=== PATIENT | female | born 1990 | race Caucasian/White ===

== ENCOUNTER 2017-02-07 07:20 | Emergency (ER) | payer OTHER ==
[~2017-02-07] VITALS: Ht 167.6 cm; Wt 86.4 kg
[~2017-02-07 07:20] MED LIST: ALEVE220 M1 PO; AMOXICILLIN/CL875 MG PO; AMOXICILLIN500 MG PO; AMOXICILLIN875 MG OR; AMOXICILLIN875 MG PO; AUGMENTIN875 MG PO; BACTRIM DS1 TAB PO; BENTYL10 MG PO; CHLORHEXADINE0.12 % PO; CIPRO HC AS; CIPRO500 MG OR; CIPROFLOXACN500 MG PO; CLINDAMYCIN150 MG PO; CORTISPORIN OTI10 M1 AS; CORTISPORIN OTI10 M2 AD; CORTISPORIN OTI10 ML AS; DEPO-PROVER150 MG/ML IM; DIFLUCAN150 MG OR; DIFLUCAN150 MG PO; FIORICE1 PO; FIORICET OR; FIORICET PO; FLINTSTONES OR; FLONASE NASAL50 MCG; FLONASE SPRAY50 MC1; FLORASTOR250 M1 PO; GENTAK0.32 OU; GLYBURIDE1.25 MG PO; GLYBURIDE2.5 MG OR; GLYBURIDE2.5 MG PO; IMITREX25 MG PO; LEVOTHYROXIN25 MC1 PO; LEVOTHYROXIN50 MCG PO; LORTAB 1010 MG PO; LORTAB 5 OR; LORTAB 7.57.5 MG PO; LORTAB5 PO; NAPROSYN500 MG OR; NAPROSYN500 MG PO; NO HOME MEDS; OBTREX DHA PO; ONDANSETRON ODT8 MG PO; ONDANSETRON4 MG PO; PERCOCET 10/31 COMBO PO; PERCOCET 5/325M1 TAB OR; PERCOCET1 TA2 PO; PHENERGAN25 MG/TAB PO; POTASSIMIN75 MG PO; PRENATA2 OR; PRENATABS OR; PROMETHAZINE25 MG OR; PYRIDIUM200 MG PO; ROCEPHIN 2250 MG/VIA IM; SAM E PO; SANTYL250 MG/GM EX; SEPTRA4001; TAM75CAP OR; TORADOL OR; TUMS500 MG PO; ULTRAM50 M1 OR; ULTRAM50 M1 PO; ULTRAM50 MG OR; ULTRAM50 MG PO; VISTARIL50 MG PO; XANAX0.25 MG PO; ZITHROMAX250 MG PO; ZOFRAN ODT4 MG OR; ZOFRAN ODT4 MG PO; ZOFRAN ODT8 MG OR; ZOFRAN4 MG OR; ZPAK OR
[2017-02-07 08:08] LABS: HEMATOCRIT 40.2 % (37.0-47.0); HEMOGLOBIN 13.4 g/dl (12.0-16.0); IMMATURE GRANULOCYTES 0.4 % (0.0-1.0); MEAN CELL VOLUME 96.2 fL CALC (80.0-100.0); MEAN CORPUSCULAR HGB 32.1 pG CALC (26.0-32.0); MEAN CORPUSCULAR HGB CONC 33.3 g/L CALC (32.0-36.0); NEUT# 3.74 thou/uL (2.00-7.15); RED BLOOD COUNT 4.18 mill/uL (4.20-5.60); RED CELL DISTRI WIDTH 12.3 % (11.5-15.5)
[2017-02-07 08:45] LABS: ALBUMIN 4.6 g/dL (3.2-5.0); ALKALINE PHOSPHATASE 61 u/l (38-126); AMYLASE 52 u/l (30-110); ANION GAP 15 (6-22 (CALC)); BILIRUBIN, TOTAL 0.5 mg/dL (0.0-1.4); BUN 13 mg/dL (7-17); BUN/CREATININE RATIO 20 (12-20 (CALC)); CALCIUM 9.7 mg/dL (8.4-10.2); CARBON DIOXIDE 25 mmol/l (22-30); CHLORIDE 105 mmol/l (95-108); CREATININE 0.6 mg/dL (0.5-1.0); GFR > 60 ML/MIN (>=60 (CALC)); GFR FOR AFR.AMER. > 60 ML/MIN (>=60 (CALC)); GLUCOSE 79 mg/dL (65-105); LIPASE 30 u/l (23-300); POTASSIUM 4.3 mmol/l (3.5-5.1); SGOT/AST 24 u/l (14-36); SGPT/ALT 34 u/l (9-52); SODIUM 141 mmol/l (137-146); TOTAL PROTEIN 7.9 g/dL (6.3-8.2)
[2017-02-07] MEDS ORDERED: ULTRAM50 M1 PO (09:51)
[2017-02-07] MEDS ORDERED: ZOFRAN ODT4 MG PO (09:51)
[2017-02-07] MEDS ORDERED: BENTYL10 MG PO (09:51)
[2017-02-07 09:53] VITALS: BP 133/87
== END 2017-02-07 09:59 | disposition home or self-care (01) | DRG 392 ==
LOC: ED 07:20
PROVIDERS: Emergency Medicine
DX: R10.32 Left lower quadrant pain (principal); E11.9 Type 2 diabetes mellitus without complications; K58.9 Irritable bowel syndrome, unspecified; N83.201 Unspecified ovarian cyst, right side

== ENCOUNTER 2017-02-18 15:19 | Emergency (ER) | payer OTHER ==
[~2017-02-18] VITALS: Ht 167.6 cm; Wt 68.0 kg
[2017-02-18 16:00] LABS: HEMATOCRIT 41.8 % (37.0-47.0); HEMOGLOBIN 13.6 g/dl (12.0-16.0); IMMATURE GRANULOCYTES 0.2 % (0.0-1.0); MEAN CORPUSCULAR HGB 30.9 pG CALC (26.0-32.0); MEAN CORPUSCULAR HGB CONC 32.5 g/L CALC (32.0-36.0); NEUT# 4.59 thou/uL (2.00-7.15); RED BLOOD COUNT 4.4 mill/uL (4.20-5.60); RED CELL DISTRI WIDTH 11.9 % (11.5-15.5)
[2017-02-18 16:43] LABS: ALBUMIN 4.9 g/dL (3.2-5.0); ALKALINE PHOSPHATASE 70 u/l (38-126); AMYLASE 65 u/l (30-110); ANION GAP 17 (6-22 (CALC)); BILIRUBIN, TOTAL 0.8 mg/dL (0.0-1.4); BUN 10 mg/dL (7-17); BUN/CREATININE RATIO 14 (12-20 (CALC)); CALCIUM 9.6 mg/dL (8.4-10.2); CARBON DIOXIDE 25 mmol/l (22-30); CHLORIDE 103 mmol/l (95-108); CREATININE 0.7 mg/dL (0.5-1.0); GFR > 60 ML/MIN (>=60 (CALC)); GFR FOR AFR.AMER. > 60 ML/MIN (>=60 (CALC)); GLUCOSE 101 mg/dL (65-105); LIPASE 44 u/l (23-300); POTASSIUM 4.7 mmol/l (3.5-5.1); SGOT/AST 79 u/l (14-36); SGPT/ALT 11 u/l (9-52); SODIUM 141 mmol/l (137-146); TOTAL PROTEIN 8.7 g/dL (6.3-8.2)
[2017-02-18] MEDS ORDERED: CIPROFLOXACN500 MG PO (17:42)
[2017-02-18 17:43] VITALS: BP 148/93
== END 2017-02-18 17:50 | disposition home or self-care (01) | DRG 392 ==
LOC: ED 15:19
PROVIDERS: Emergency Medicine
DX: R10.32 Left lower quadrant pain (principal); E11.9 Type 2 diabetes mellitus without complications; K58.9 Irritable bowel syndrome, unspecified; G89.29 Other chronic pain

== ENCOUNTER 2017-06-10 11:40 | Emergency (ER) | payer OTHER ==
[~2017-06-10] VITALS: Ht 167.6 cm; Wt 74.0 kg
[2017-06-10] MEDS ORDERED: AUGMENTIN875TAB PO (12:32)
[2017-06-10 13:24] LABS: INFLUENZA A NONE DETECTED (NONE DETECT); INFLUENZA B NONE DETECTED (NONE DETECT)
[2017-06-10] MEDS ORDERED: ROBITUSSIN AC10 ML PO (13:28)
[2017-06-10] MEDS ORDERED: CEPHALEXIN500 MG PO (13:28)
[2017-06-10] MEDS ORDERED: FLONASE AL50 MCG/ACT (13:28)
[2017-06-10 13:30] VITALS: BP 121/79
== END 2017-06-10 13:30 | disposition home or self-care (01) | DRG 153 ==
LOC: ED 11:40
PROVIDERS: Emergency Medicine
DX: J06.9 Acute upper respiratory infection, unspecified (principal); E11.9 Type 2 diabetes mellitus without complications

== ENCOUNTER 2017-07-03 11:04 | Emergency (ER) | payer OTHER ==
[~2017-07-03] VITALS: Ht 167.6 cm; Wt 75.2 kg
[~2017-07-03 11:04] MED LIST changes: +AUGMENTIN875TAB PO; +CEPHALEXIN500 MG PO; +FLONASE AL50 MCG/ACT; +ROBITUSSIN AC10 ML PO
[2017-07-03] MEDS ORDERED: DICYCLOMINE10 MG PO (11:25)
[2017-07-03 12:32] LABS: HEMATOCRIT 38.3 % (37.0-47.0); HEMOGLOBIN 12.7 g/dl (12.0-16.0); IMMATURE GRANULOCYTES 0.2 % (0.0-1.0); MEAN CELL VOLUME 95.3 fL CALC (80.0-100.0); MEAN CORPUSCULAR HGB 31.6 pG CALC (26.0-32.0); MEAN CORPUSCULAR HGB CONC 33.2 g/L CALC (32.0-36.0); NEUT# 4.22 thou/uL (2.00-7.15); RED BLOOD COUNT 4.02 mill/uL (4.20-5.60); RED CELL DISTRI WIDTH 12.1 % (11.5-15.5)
[2017-07-03 12:44] LABS: ALBUMIN 4.7 g/dL (3.2-5.0); ALKALINE PHOSPHATASE 60 u/l (38-126); ANION GAP 14 (6-22 (CALC)); BILIRUBIN, TOTAL 0.5 mg/dL (0.0-1.4); BUN 11 mg/dL (7-17); BUN/CREATININE RATIO 15 (12-20 (CALC)); CALCIUM 9.8 mg/dL (8.4-10.2); CARBON DIOXIDE 25 mmol/l (22-30); CHLORIDE 105 mmol/l (95-108); CREATININE 0.7 mg/dL (0.5-1.0); GFR > 60 ML/MIN (>=60 (CALC)); GFR FOR AFR.AMER. > 60 ML/MIN (>=60 (CALC)); GLUCOSE 80 mg/dL (65-105); POTASSIUM 4.4 mmol/l (3.5-5.1); SGOT/AST 21 u/l (14-36); SGPT/ALT 35 u/l (9-52); SODIUM 140 mmol/l (137-146); TOTAL PROTEIN 7.7 g/dL (6.3-8.2)
[2017-07-03 13:21] VITALS: BP 120/79
== END 2017-07-03 13:19 | disposition home or self-care (01) | DRG 392 ==
LOC: ED 11:04
PROVIDERS: Emergency Medicine
DX: R10.84 Generalized abdominal pain (principal); K58.9 Irritable bowel syndrome, unspecified

== ENCOUNTER 2017-08-17 09:17 | Emergency (ER) | payer OTHER ==
[~2017-08-17] VITALS: Ht 167.6 cm; Wt 75.0 kg
[~2017-08-17 09:17] MED LIST changes: +DICYCLOMINE10 MG PO
[2017-08-17 10:18] LABS: URINE BILIRUBIN - DIPSTICK NEGATIVE (NEGATIVE); URINE BLOOD DIPSTICK NEGATIVE (NEGATIVE); URINE CLARITY CLEAR; URINE COLOR YELLOW; URINE GLUCOSE - DIPSTICK NEGATIVE (NEGATIVE); URINE KETONE NEGATIVE (NEGATIVE); URINE LEUK ESTERASE NEGATIVE (NEGATIVE); URINE NITRITE - DIPSTICK NEGATIVE (Negative); URINE PROTEIN - DIPSTICK NEGATIVE (NEG-TRACE); URINE UROBILINOGEN - DIPSTICK 0.2 E.U./dL (0.2)
[2017-08-17 10:48] LABS: HEMATOCRIT 40.3 % (37.0-47.0); HEMOGLOBIN 13.4 g/dl (12.0-16.0); IMMATURE GRANULOCYTES 0.3 % (0.0-1.0); MEAN CORPUSCULAR HGB 31.6 pG CALC (26.0-32.0); MEAN CORPUSCULAR HGB CONC 33.3 g/L CALC (32.0-36.0); NEUT# 4.88 thou/uL (2.00-7.15); RED BLOOD COUNT 4.24 mill/uL (4.20-5.60)
[2017-08-17 11:01] LABS: ALBUMIN 4.7 g/dL (3.2-5.0); ALKALINE PHOSPHATASE 55 u/l (38-126); ANION GAP 15 (6-22 (CALC)); BILIRUBIN, TOTAL 0.6 mg/dL (0.0-1.4); BUN 9 mg/dL (7-17); BUN/CREATININE RATIO 13 (12-20 (CALC)); CALCIUM 9.8 mg/dL (8.4-10.2); CARBON DIOXIDE 26 mmol/l (22-30); CHLORIDE 106 mmol/l (95-108); CREATININE 0.7 mg/dL (0.5-1.0); GFR > 60 ML/MIN (>=60 (CALC)); GFR FOR AFR.AMER. > 60 ML/MIN (>=60 (CALC)); GLUCOSE 86 mg/dL (65-105); POTASSIUM 4.2 mmol/l (3.5-5.1); SGOT/AST 16 u/l (14-36); SGPT/ALT 28 u/l (9-52); SODIUM 143 mmol/l (137-146); TOTAL PROTEIN 7.4 g/dL (6.3-8.2)
[2017-08-17] MEDS ORDERED: TORADOL PO (11:17)
[2017-08-17] MEDS ORDERED: FLEXERIL PO (11:17)
[2017-08-17 11:37] VITALS: BP 114/67
== END 2017-08-17 11:44 | disposition home or self-care (01) | DRG 552 ==
LOC: ED 09:17
PROVIDERS: Emergency Medicine
DX: M54.5 Low back pain (principal); R10.11 Right upper quadrant pain

== ENCOUNTER 2017-11-15 15:35 | Emergency (ER) | payer OTHER ==
[~2017-11-15] VITALS: Ht 167.6 cm; Wt 74.0 kg
[~2017-11-15 15:35] MED LIST changes: +FLEXERIL PO; +TORADOL PO
[2017-11-15 17:32] VITALS: BP 134/77
== END 2017-11-15 17:32 | disposition home or self-care (01) | DRG 563 ==
LOC: ED 15:35
DX: S93.491A Sprain of other ligament of right ankle, initial encounter (principal); X50.1XXA Overexertion from prolonged static or awkward postures, initial encounter; Y93.89 Activity, other specified; Y92.009 Unspecified place in unspecified non-institutional (private) residence as the place of occurrence of the external cause

== ENCOUNTER 2018-02-24 07:22 | Emergency (ER) | payer OTHER ==
[~2018-02-24] VITALS: Ht 167.6 cm; Wt 77.3 kg
[2018-02-24 08:07] LABS: HEMOGLOBIN 13.3 g/dl (12.0-16.0); IMMATURE GRANULOCYTES 0.4 % (0.0-1.0); MEAN CELL VOLUME 96.5 fL CALC (80.0-100.0); MEAN CORPUSCULAR HGB 31.3 pG CALC (26.0-32.0); MEAN CORPUSCULAR HGB CONC 32.4 g/L CALC (32.0-36.0); NEUT# 6.42 thou/uL (2.00-7.15); RED BLOOD COUNT 4.25 mill/uL (4.20-5.60); RED CELL DISTRI WIDTH 12.8 % (11.5-15.5)
[2018-02-24 08:18] LABS: ALBUMIN 4.8 g/dL (3.2-5.0); ALKALINE PHOSPHATASE 63 u/l (38-126); ANION GAP 19 (6-22 (CALC)); BILIRUBIN, TOTAL 0.5 mg/dL (0.0-1.4); BUN 9 mg/dL (7-17); BUN/CREATININE RATIO 14 (12-20 (CALC)); CARBON DIOXIDE 25 mmol/l (22-30); CHLORIDE 106 mmol/l (95-108); CREATININE 0.6 mg/dL (0.5-1.0); GFR > 60 ML/MIN (>=60 (CALC)); GFR FOR AFR.AMER. > 60 ML/MIN (>=60 (CALC)); LIPASE 29 u/l (23-300); POTASSIUM 3.6 mmol/l (3.5-5.1); SGOT/AST 25 u/l (14-36); SGPT/ALT 34 u/l (9-52); SODIUM 146 mmol/l (137-146); TOTAL PROTEIN 8.6 g/dL (6.3-8.2)
[2018-02-24] MEDS ORDERED: DICYCLOMINE 10 MG/ML IM (09:03)
[2018-02-24 09:56] LABS: URINE BILIRUBIN - DIPSTICK NEGATIVE (NEGATIVE); URINE BLOOD DIPSTICK NEGATIVE (NEGATIVE); URINE CLARITY CLEAR; URINE COLOR YELLOW; URINE GLUCOSE - DIPSTICK NEGATIVE (NEGATIVE); URINE KETONE NEGATIVE (NEGATIVE); URINE LEUK ESTERASE NEGATIVE (NEGATIVE); URINE NITRITE - DIPSTICK NEGATIVE (Negative); URINE PH 8.5 (4.5-8.0); URINE PROTEIN - DIPSTICK TRACE mg/dL (NEG-TRACE); URINE UROBILINOGEN - DIPSTICK 0.2 E.U./dL (0.2)
[2018-02-24] MEDS ORDERED: ONDANSETRON4 MG PO (10:16)
[2018-02-24 10:48] VITALS: BP 83/46
== END 2018-02-24 10:48 | disposition home or self-care (01) | DRG 392 ==
LOC: ED 07:22
PROVIDERS: Family Medicine
DX: R10.9 Unspecified abdominal pain (principal); R11.2 Nausea with vomiting, unspecified; K58.9 Irritable bowel syndrome, unspecified

== ENCOUNTER 2018-08-25 14:59 | Emergency (ER) | payer OTHER ==
[~2018-08-25] VITALS: Ht 167.6 cm; Wt 72.0 kg
[~2018-08-25 14:59] MED LIST changes: +DICYCLOMINE 10 MG/ML IM
[2018-08-25 17:24] LABS: HEMATOCRIT 41.7 % (37.0-47.0); HEMOGLOBIN 13.8 g/dl (12.0-16.0); IMMATURE GRANULOCYTES 0.3 % (0.0-5.0); MEAN CELL VOLUME 95.6 fL CALC (80.0-100.0); MEAN CORPUSCULAR HGB 31.7 pG CALC (26.0-32.0); MEAN CORPUSCULAR HGB CONC 33.1 g/L CALC (32.0-36.0); NEUT# 5.14 thou/uL (2.00-7.15); RED BLOOD COUNT 4.36 mill/uL (4.20-5.60); RED CELL DISTRI WIDTH 12.2 % (11.5-15.5)
[2018-08-25 18:08] LABS: ALBUMIN 4.1 g/dL (3.2-5.0); ALKALINE PHOSPHATASE 64 u/l (38-126); AMYLASE 43 u/l (30-110); ANION GAP 12 (6-22 (CALC)); BILIRUBIN, TOTAL 0.3 mg/dL (0.0-1.4); BUN 4 mg/dL (7-17); BUN/CREATININE RATIO 8 (12-20 (CALC)); CARBON DIOXIDE 23 mmol/l (22-30); CHLORIDE 111 mmol/l (95-108); CREATININE 0.5 mg/dL (0.5-1.0); GFR > 60 ML/MIN (>=60 (CALC)); GFR FOR AFR.AMER. > 60 ML/MIN (>=60 (CALC)); LIPASE 29 u/l (23-300); POTASSIUM 4.1 mmol/l (3.5-5.1); SGOT/AST 18 u/l (14-36); SODIUM 142 mmol/l (137-146)
[2018-08-25 18:10] LABS: TOTAL PROTEIN 6.8 g/dL (6.3-8.2)
[2018-08-25] MEDS ORDERED: PREVACID30 M3 PO (18:46)
[2018-08-25] MEDS ORDERED: ZOFRAN ODT4 MG PO (18:46)
[2018-08-25] MEDS ORDERED: BENTYL10 MG PO (18:46)
[2018-08-25] MEDS ORDERED: ULTRAM50 M1 PO (18:46)
[2018-08-25 18:49] VITALS: BP 110/64
== END 2018-08-25 19:00 | disposition home or self-care (01) | DRG 392 ==
LOC: ED 14:59
PROVIDERS: Emergency Medicine
DX: K58.0 Irritable bowel syndrome with diarrhea (principal)
CPT/HCPCS: S0164

== ENCOUNTER 2018-09-11 17:00 | Emergency (ER) | payer OTHER ==
[~2018-09-11] VITALS: Ht 167.6 cm; Wt 74.0 kg
[~2018-09-11 17:00] MED LIST changes: +PREVACID30 M3 PO
[2018-09-11] MEDS ORDERED: ZOFRAN4 MG/TAB PO (18:46)
[2018-09-11] MEDS ORDERED: IBUPROFEN600 MG PO (18:46)
[2018-09-11] MEDS ORDERED: AMOXICILLIN875 MG PO (18:46)
[2018-09-11 19:10] VITALS: BP 113/69
== END 2018-09-11 19:10 | disposition home or self-care (01) | DRG 153 ==
LOC: ED 17:00
DX: J02.9 Acute pharyngitis, unspecified (principal); R50.9 Fever, unspecified; R51 Headache; H66.92 Otitis media, unspecified, left ear

== ENCOUNTER 2019-04-14 17:05 | Emergency (ER) | payer OTHER ==
[~2019-04-14] VITALS: Ht 167.6 cm; Wt 72.0 kg
[~2019-04-14 17:05] MED LIST changes: +IBUPROFEN600 MG PO; +ZOFRAN4 MG/TAB PO
[2019-04-14] MEDS ORDERED: FLEXERIL PO (18:18)
[2019-04-14 18:47] VITALS: BP 109/63
== END 2019-04-14 18:51 | disposition home or self-care (01) | DRG 103 ==
LOC: ED 17:05
DX: G43.909 Migraine, unspecified, not intractable, without status migrainosus (principal); S46.911A Strain of unspecified muscle, fascia and tendon at shoulder and upper arm level, right arm, initial encounter; X50.1XXA Overexertion from prolonged static or awkward postures, initial encounter; Y92.810 Car as the place of occurrence of the external cause
CPT/HCPCS: J0131

== ENCOUNTER 2019-09-13 07:25 | Emergency (ER) | payer OTHER ==
[~2019-09-13] VITALS: Ht 167.6 cm; Wt 72.7 kg
[2019-09-13] MEDS ORDERED: TYLENOL # 31 TAB PO (07:56)
[2019-09-13] MEDS ORDERED: TAM75CAP PO (07:56)
[2019-09-13] MEDS ORDERED: CORTISPORIN OTI10 ML AS (07:56)
[2019-09-13 08:15] VITALS: BP 124/81
== END 2019-09-13 08:16 | disposition home or self-care (01) | DRG 153 ==
LOC: ED 07:25
DX: J11.1 Influenza due to unidentified influenza virus with other respiratory manifestations (principal)
CPT/HCPCS: G9019

== ENCOUNTER 2020-01-03 | Emergency (ER) | payer OTHER ==
[~2020-01-03] MED LIST changes: +TAM75CAP PO; +TYLENOL # 31 TAB PO
[2020-01-03 23:18] LABS: URINE BILIRUBIN - DIPSTICK NEGATIVE (NEGATIVE); URINE BLOOD DIPSTICK NEGATIVE (NEGATIVE); URINE COLOR YELLOW; URINE GLUCOSE - DIPSTICK NEGATIVE (NEGATIVE); URINE KETONE NEGATIVE (NEGATIVE); URINE LEUK ESTERASE NEGATIVE (NEGATIVE); URINE NITRITE - DIPSTICK NEGATIVE (Negative); URINE PROTEIN - DIPSTICK NEGATIVE (NEG-TRACE); URINE SPECIFIC GRAVITY 1.015; URINE UROBILINOGEN - DIPSTICK 0.2 E.U./dL (0.2)
[2020-01-03 23:32] LABS: HEMATOCRIT 36.6 % (37.0-47.0); IMMATURE GRANULOCYTES 0.3 % (0.0-5.0); MEAN CELL VOLUME 96.8 fL CALC (80.0-100.0); MEAN CORPUSCULAR HGB 31.7 pG CALC (26.0-32.0); MEAN CORPUSCULAR HGB CONC 32.8 g/dL CAL (32.0-36.0); NEUT# 5.14 thou/uL (2.00-7.15); RED BLOOD COUNT 3.78 mill/uL (4.20-5.60); RED CELL DISTRI WIDTH 12.7 % (11.5-15.5)
[2020-01-04] MEDS ORDERED: TRAMADOL HYDROC50 MG PO (03:40)
== END 2020-01-04 03:56 | disposition home or self-care (01) | DRG 392 ==
DX: R10.2 Pelvic and perineal pain (principal)

== ENCOUNTER 2020-01-08 | Emergency (ER) | payer OTHER ==
[~2020-01-08] MED LIST changes: +TRAMADOL HYDROC50 MG PO
[2020-01-08 06:13] LABS: HEMATOCRIT 39.6 % (37.0-47.0); IMMATURE GRANULOCYTES 0.3 % (0.0-5.0); MEAN CELL VOLUME 96.6 fL CALC (80.0-100.0); MEAN CORPUSCULAR HGB 31.7 pG CALC (26.0-32.0); MEAN CORPUSCULAR HGB CONC 32.8 g/dL CAL (32.0-36.0); NEUT# 8.73 thou/uL (2.00-7.15); RED BLOOD COUNT 4.1 mill/uL (4.20-5.60); RED CELL DISTRI WIDTH 12.5 % (11.5-15.5)
[2020-01-08 06:14] LABS: URINE BILIRUBIN - DIPSTICK NEGATIVE (NEGATIVE); URINE BLOOD DIPSTICK NEGATIVE (NEGATIVE); URINE COLOR YELLOW; URINE GLUCOSE - DIPSTICK NEGATIVE (NEGATIVE); URINE KETONE NEGATIVE (NEGATIVE); URINE LEUK ESTERASE NEGATIVE (NEGATIVE); URINE NITRITE - DIPSTICK NEGATIVE (Negative); URINE PROTEIN - DIPSTICK NEGATIVE (NEG-TRACE); URINE UROBILINOGEN - DIPSTICK 0.2 E.U./dL (0.2)
[2020-01-08 06:29] LABS: BARBITURATES NEGATIVE (NEGATIVE); COCAINE NEGATIVE (NEGATIVE); METHADONE NEGATIVE (NEGATIVE); OXCYCODONE NEGATIVE (NEGATIVE); TETRAHYDROCANNABIONOL POSITIVE (NEGATIVE); TRICYLIC ANTIDEPRESSANTS NEGATIVE (NEGATIVE)
[2020-01-08 06:37] LABS: ALBUMIN 4.7 g/dL (3.2-5.0); ALKALINE PHOSPHATASE 62 u/l (38-126); AMYLASE 101 u/l (30-110); ANION GAP 11 (6-22 (CALC)); BILIRUBIN, TOTAL 0.4 mg/dL (0.0-1.4); BUN 12 mg/dL (7-17); BUN/CREATININE RATIO 20 (12-20 (CALC)); CARBON DIOXIDE 25 mmol/l (22-30); CHLORIDE 105 mmol/l (95-108); CREATININE 0.6 mg/dL (0.5-1.0); GFR > 60 ML/MIN (>=60 (CALC)); GFR FOR AFR.AMER. > 60 ML/MIN (>=60 (CALC)); LIPASE 39 u/l (23-300); POTASSIUM 4.1 mmol/l (3.5-5.1); SGOT/AST 30 u/l (14-36); SODIUM 137 mmol/l (137-146); TOTAL PROTEIN 7.9 g/dL (6.3-8.2)
[2020-01-08] MEDS ORDERED: PHENERGAN25 MG/TAB PO (08:49)
[2020-01-08] MEDS ORDERED: PROTONIX40 M2 PO (08:49)
== END 2020-01-08 08:57 | disposition home or self-care (01) | DRG 392 ==
DX: R10.13 Epigastric pain (principal); R11.10 Vomiting, unspecified
CPT/HCPCS: S0164

== ENCOUNTER 2020-08-27 12:43 | Emergency (ER) | payer OTHER ==
[~2020-08-27] VITALS: Ht 165.1 cm; Wt 70.0 kg
[~2020-08-27 12:43] MED LIST changes: +PROTONIX40 M2 PO
[2020-08-27 15:05] VITALS: BP 149/74
== END 2020-08-27 15:05 | disposition home or self-care (01) | DRG 159 ==
LOC: ED 12:43
DX: M26.603 Bilateral temporomandibular joint disorder, unspecified (principal)

== ENCOUNTER 2020-09-24 19:28 | Emergency (ER) | payer OTHER ==
[~2020-09-24] VITALS: Ht 165.1 cm; Wt 65.0 kg
[2020-09-24] MEDS ORDERED: GENTAMICIN SULF5 ML OD (20:13)
[2020-09-24] MEDS ORDERED: (None)3.5 GM OD (20:13)
[2020-09-24 20:20] VITALS: BP 117/87
== END 2020-09-24 20:20 | disposition home or self-care (01) | DRG 125 ==
LOC: ED 19:28
DX: S05.01XA Injury of conjunctiva and corneal abrasion without foreign body, right eye, initial encounter (principal); X58.XXXA Exposure to other specified factors, initial encounter

== ENCOUNTER 2020-11-24 07:32 | Emergency (ER) | payer OTHER ==
[~2020-11-24] VITALS: Ht 165.1 cm; Wt 65.0 kg
[~2020-11-24 07:32] MED LIST changes: +(None)3.5 GM OD; +GENTAMICIN SULF5 ML OD
[2020-11-24 08:23] LABS: HEMATOCRIT 37.2 % (37.0-47.0); IMMATURE GRANULOCYTES 0.3 % (0.0-5.0); MEAN CELL VOLUME 97.4 fL CALC (80.0-100.0); MEAN CORPUSCULAR HGB 31.4 pG CALC (26.0-32.0); MEAN CORPUSCULAR HGB CONC 32.3 g/dL CAL (32.0-36.0); NEUT# 4.27 thou/uL (2.00-7.15); RED BLOOD COUNT 3.82 mill/uL (4.20-5.60); RED CELL DISTRI WIDTH 12.4 % (11.5-15.5)
[2020-11-24 08:24] LABS: URINE BILIRUBIN - DIPSTICK NEGATIVE (NEGATIVE); URINE BLOOD DIPSTICK NEGATIVE (NEGATIVE); URINE COLOR YELLOW; URINE GLUCOSE - DIPSTICK NEGATIVE (NEGATIVE); URINE KETONE NEGATIVE (NEGATIVE); URINE LEUK ESTERASE NEGATIVE (NEGATIVE); URINE NITRITE - DIPSTICK NEGATIVE (Negative); URINE PH 7.5 (4.5-8.0); URINE PROTEIN - DIPSTICK NEGATIVE (NEG-TRACE); URINE UROBILINOGEN - DIPSTICK 0.2 E.U./dL (0.2)
[2020-11-24] MEDS ORDERED: BENADRYL 25MG C25 MG PO (08:33)
[2020-11-24] MEDS ORDERED: OKRA PEPSIN (08:34)
[2020-11-24] MEDS ORDERED: [UNRECOGNIZED DRUG - OTHER] (08:35)
[2020-11-24] MEDS ORDERED: OMEGA-3 FISH1000 MG PO (08:35)
[2020-11-24] MEDS ORDERED: [UNRECOGNIZED DRUG - OTHER] (08:35)
[2020-11-24] MEDS ORDERED: [UNRECOGNIZED DRUG - OTHER] (08:36)
[2020-11-24 08:39] LABS: ALBUMIN 3.9 g/dL (3.2-5.0); ALKALINE PHOSPHATASE 44 u/l (38-126); ANION GAP 10 (6-22 (CALC)); BILIRUBIN, TOTAL 0.4 mg/dL (0.0-1.4); BUN 7 mg/dL (7-17); BUN/CREATININE RATIO 13 (12-20 (CALC)); CARBON DIOXIDE 23 mmol/l (22-30); CHLORIDE 104 mmol/l (95-108); CREATININE 0.6 mg/dL (0.5-1.0); GFR > 60 ML/MIN (>=60 (CALC)); GFR FOR AFR.AMER. > 60 ML/MIN (>=60 (CALC)); LIPASE 37 u/l (23-300); POTASSIUM 4.2 mmol/l (3.5-5.1); SGOT/AST 22 u/l (14-36); SODIUM 133 mmol/l (137-146); TOTAL PROTEIN 6.6 g/dL (6.3-8.2)
[2020-11-24 09:53] VITALS: BP 95/54
== END 2020-11-24 09:53 | disposition home or self-care (01) | DRG 392 ==
LOC: ED 07:32
PROVIDERS: Family Medicine
DX: R10.11 Right upper quadrant pain (principal); K58.9 Irritable bowel syndrome, unspecified; Z87.442 Personal history of urinary calculi

== ENCOUNTER 2021-07-25 16:56 | Emergency (ER) | payer OTHER ==
[~2021-07-25 16:56] MED LIST changes: +BENADRYL 25MG C25 MG PO; +OKRA PEPSIN; +OMEGA-3 FISH1000 MG PO; +[UNRECOGNIZED DRUG - OTHER]; +[UNRECOGNIZED DRUG - OTHER]; +[UNRECOGNIZED DRUG - OTHER]
== END 2021-07-25 18:17 | disposition left against medical advice (07) | DRG 951 ==
LOC: ED 16:56 → LWOBS 18:17
DX: Z53.21 Procedure and treatment not carried out due to patient leaving prior to being seen by health care provider (principal)

== ENCOUNTER 2022-02-16 16:27 | Emergency (ER) | payer OTHER ==
[~2022-02-16] VITALS: Ht 165.1 cm; Wt 69.0 kg
[2022-02-16 17:11] VITALS: BP 131/90
[2022-02-16 17:16] VITALS: BP 116/74
[2022-02-16 18:25] LABS: HEMATOCRIT 42.1 % (37.0-47.0); HEMOGLOBIN 13.6 g/dl (12.0-16.0); IMMATURE GRANULOCYTES 0.1 % (0.0-5.0); MEAN CELL VOLUME 100.7 fL CALC (80.0-100.0); MEAN CORPUSCULAR HGB 32.5 pG CALC (26.0-32.0); MEAN CORPUSCULAR HGB CONC 32.3 g/dL CAL (32.0-36.0); NEUT# 8.29 thou/uL (2.00-7.15); RED BLOOD COUNT 4.18 mill/uL (4.20-5.60); RED CELL DISTRI WIDTH 12.5 % (11.5-15.5)
[2022-02-16 18:47] LABS: ALBUMIN 4.6 g/dL (3.2-5.0); ALKALINE PHOSPHATASE 62 u/l (38-126); AMYLASE 113 u/l (30-110); ANION GAP 13 (6-22 (CALC)); BUN 8 mg/dL (7-17); BUN/CREATININE RATIO 11 (12-20 (CALC)); CARBON DIOXIDE 24 mmol/l (22-30); CHLORIDE 105 mmol/l (95-108); CREATININE 0.7 mg/dL (0.5-1.0); GFR > 60 ML/MIN (>=60 (CALC)); GFR FOR AFR.AMER. > 60 ML/MIN (>=60 (CALC)); LIPASE 77 u/l (23-300); POTASSIUM 3.8 mmol/l (3.5-5.1); SGOT/AST 30 u/l (14-36); SODIUM 138 mmol/l (137-146); TOTAL PROTEIN 7.8 g/dL (6.3-8.2)
[2022-02-16 18:49] LABS: BILIRUBIN, TOTAL 0.2 mg/dL (0.0-1.4)
[2022-02-16] MEDS ORDERED: DICYCLOMINE10 MG PO (19:27)
[2022-02-16 19:35] VITALS: BP 116/74
== END 2022-02-16 19:53 | disposition home or self-care (01) | DRG 392 ==
LOC: ED 16:27
DX: K58.9 Irritable bowel syndrome, unspecified (principal)